=== PATIENT | female | born 1970 | race Caucasian/White ===

== ENCOUNTER 2016-12-31 10:25 | Emergency (ER) | payer OTHER ==
[2016-12-31 11:05] VITALS: BP 150/90
--- NOTE | 2016-12-31 12:08 | UC ---
Jon, DoctorMichaela, scribed for Danielle Pacheco MD on 12/31/16 at 1123 . Complaint Female HPI - HPI Summary HPI Summary: 46 year old female arrived to [facility] [place] c/o increased urinary frequency and burning beginning two days ago (12/29/2016). She reports an increasing urge to urinate and only voiding a very small amount; notes that the urine was a "dark orange" color. She rates her pain as 3/10, describes it as a burning and occasional "jabbing" pain. She denies any back or abdominal pain. She recently went to the [facility] (12/24/2016), and had an internal polyp removed in the office. Her LMP was on 12/23/2016, she denies any possibility of . She has a PMHx of MS (dx 11 years ago), - History Of Current Complaint Chief Complaint: UCGU Stated Complaint: URINARY ISSUE Time Seen by Provider: 12/31/16 11:00 Hx Obtained From: Patient Hx Last Menstrual Period: 12/23/16 ?: No Onset/Duration: Gradual Onset, Lasting Days, Still Present Timing: Constant, Lasting Days Severity Initially: Moderate Severity Currently: Moderate Pain Intensity: 3 Pain Scale Used: 0-10 Numeric Character: Burning Aggravating Factor(s): Nothing Alleviating Factor(s): Position - hot water bottle Associated Signs And Symptoms: Positive: Vaginal Bleeding/Discharge - hematuria , no definite vag bleeding but had polyp removed 12/24/16. Negative: Fever, Vaginal Discharge - Allergies/Home Medications Allergies/Adverse Reactions: Allergies Allergy/AdvReac Type Severity Reaction Status Date / Time No Known Allergies Allergy Verified 11/05/15 10:14 PMH/Surg Hx/FS Hx/Imm Hx - Additional Past Medical History Additional PMH: Multiple Sclerosis Previously Healthy: No - MS Endocrine History Of: Denies: Diabetes Cardiovascular History Of: Denies: Hypertension, Pacemaker/ICD GI/ History Of: Denies: Renal Disease Cancer History Of: Denies: Breast Cancer - Surgical History Surgical History: None - Family History Known Family History: Positive: Other - no FHx of breast cancer - Social History Occupation: Employed Full-time Alcohol Use: Occasionally Substance Use Type: None Smoking Status (MU): Never Smoked Tobacco Review of Systems Constitutional: Other - no fever Genitourinary: Dysuria - burning, Hematuria, Frequency, Urgency Musculoskeletal: Other: - no abdominal pain, no back pain All Other Systems Reviewed And Are Negative: Yes Physical Exam Triage Information Reviewed: Yes Appearance: No Pain Distress, Well-Nourished, Ill-Appearing - mildly ill- appearing Vital Signs: Initial Vital Signs Temp 98.9 F 12/31/16 11:00 Pulse 81 12/31/16 11:00 Resp 16 12/31/16 11:00 BP 150/90 12/31/16 11:00 Pulse Ox 100 12/31/16 11:00 elevated BP noted Vital Signs Reviewed: Yes Eyes: Positive: Conjunctiva Clear ENT: Positive: Normal ENT inspection Neck: Positive: Supple Respiratory: Positive: Lungs clear, Normal breath sounds, No respiratory distress Cardiovascular: Positive: RRR, No Murmur, Pulses Normal, Brisk Capillary Refill Abdomen Description: Positive: Nontender, No Organomegaly, Soft. Negative: Bruit, CVA Tenderness (R), CVA Tenderness (L), Distended, Guarding, Hepatomegaly , McBurney's Point Tenderness, Peritoneal Signs, Pulsatile Mass, Splenomegaly Bowel Sounds: Positive: Present Musculoskeletal: Positive: Strength Intact, ROM Intact Neurological: Positive: Alert, Muscle Tone Normal Psychological Exam: Normal Skin Exam: Normal Diagnostics - Laboratory Diagnostic Studies Completed/Ordered: UA: Urine Blood 2+, Urine Ketones 2+ Complaint Female Dx - Course Course Of Treatment: Elevated blood pressure noted (150/90). Pt has classic UTI sxs, so will treat at this time. Advised pt that we may need to stop the antibiotic if it is not a true UTI. Also advised that she would then need further evaluation of the hematuria, which may be vaginal contamination after having recently had a polyp removed. - Differential Dx/Diagnosis Provider Diagnoses: 1) Hematuria. 2) UTI. 3) high blood pressure without diagnosis of hypertension. Discharge - Discharge Plan Condition: Stable Disposition: HOME Prescriptions: Phenazopyridine TAB* [Pyridium 100 mg TAB*] 200 mdi PO TID #15 tab Sulfamethox/Trimethoprim DS* [Bactrim DS 800/160 TAB*] 1 tab PO BID #10 tab Patient Education Materials: Urinary Tract Infection in Women (ED), Hematuria ( ED) Referrals: No Primary Care Phys,NOPCP [Primary Care Provider] - Abilio Lea MD [Medical Doctor] - 5 Days Additional Instructions: If the urine does not show a true infection, you will need additional follow-up regarding the blood in the urine. Also follow up regarding your elevated blood pressure today in 5 days. RETURN TO URGENT CARE FOR ANY NEW OR WORSENING SYMPTOMS The documentation as recorded by the Doctor dennis Tahera accurately reflects the service I personally performed and the decisions made by me, Danielle Pacheco MD.
== END 2016-12-31 12:14 | disposition home or self-care (01) ==
LOC: UCEAST 10:25
DX: N39.0 Urinary tract infection, site not specified (principal); R31.9 Hematuria, unspecified; R03.0 Elevated blood-pressure reading, without diagnosis of hypertension
CPT/HCPCS: 81003; 87077; 87086; 87186; 99212; G0463

== ENCOUNTER → 2019-01-12 07:17 | Day surgery (SDC) | payer OTHER ==
[~2019-01-12 07:17] MED LIST: Buffered Lidocaine 1% SYRIN* 1 ML/SYRINGE INTRADERM ONE; Famotidine IV* 10 MG/ML 2 ML (20 mg) IV ONE; Lidocaine 1% INJ* 10 MG/ML 30 ML SDV ONE
[2019-01-12] MEDS: Lactated Ringers 1000 ML Bag* 1,000 ML IV SCH ×2 (08:18→08:24)
[2019-01-12 09:42] VITALS: BP 142/87
--- NOTE | 2019-01-12 12:29 | OP ---
CC: Dr. Pancho Cole; Dr. Rosalinda Robb; Dr. Trinidad Archuleta OPERATIVE REPORT: DATE OF OPERATION: 01/12/19 DATE OF : 66 SURGEON: Pancho Cole MD CLAIM PROCESSOR: None. ANESTHESIOLOGIST: None. PRE-OP DIAGNOSIS: Right breast cancer. POST-OP DIAGNOSIS: Right breast cancer. OPERATIVE PROCEDURE: Placement of left subclavian 8-[employer]. DESCRIPTION OF PROCEDURE: The patient was supine on the fluoroscopy table. The left neck and chest region were prepped with antiseptic, draped in a sterile fashion. Local infiltrative anesthesia was administered and approximately 3 cm subclavian incision was created, inferior pocket was created. Norris bclavian venipuncture was carried out. Guidewire passed under fluoroscopic guidance. Catheter passed with a peel-away introducer measured and cut at 27 cm, attached to the port which was sutured in the pocket with 2-0 Prolene. The pocket was closed with 3-0 and 5-0 Vicryl followed by Steri-Strips. T he port had good blood return and flushed with saline solution and heparinized solution. She tolerat ed the procedure well, was brought to recovery in good condition. No complications. No drains. No pathologic specimens. Sponge and instrument counts correct. Estimated blood loss 20 mL. [id number]/[facility] #: [id number]
== END | disposition home or self-care (01) ==
LOC: OR 07:17
PROVIDERS: ATTEND Surgery
DX: C50.311 Malignant neoplasm of lower-inner quadrant of right female breast (principal); G35 Multiple sclerosis
CPT/HCPCS: 71045; 76000; 81025; C1788; J1642